=== PATIENT | female | born 1990 | race Caucasian/White ===

== ENCOUNTER 2018-06-13 08:38 | Emergency (ER) | payer OTHER ==
[~2018-06-13] VITALS: Ht 157.5 cm; Wt 106.6 kg
[~2018-06-13 08:38] MED LIST: COL100 PO
[2018-06-13 08:46] VITALS: Ht 157.5 cm; Wt 106.6 kg
[2018-06-13 09:50] LABS: BASOPHIL % 1.5 % (0-2); PLATELET COUNT 276 x10^3mcL (130-400)
[2018-06-13 10:02] LABS: microscopic required? YES; urine erythrocyte 1+ (NEGATIVE)
[2018-06-13 11:51] VITALS: BP 136/88
== END 2018-06-13 11:51 | disposition home or self-care (01) ==
LOC: ED 08:38
PROVIDERS: Emergency Medicine
DX: O20.0 Threatened abortion (principal); N76.0 Acute vaginitis; Z90.49 Acquired absence of other specified parts of digestive tract; Z97.5 Presence of (intrauterine) contraceptive device
CPT/HCPCS: 36415